=== PATIENT | male | born 1980 | race African-American/Black ===

== ENCOUNTER 2017-01-06 00:38 | Emergency (ER) | payer SELFPAY ==
[~2017-01-06] VITALS: Ht 182.9 cm; Wt 83.9 kg
[2017-01-06 04:20] VITALS: BP 128/65
== END 2017-01-06 06:48 | disposition home or self-care (01) ==
LOC: ER 00:41
DX: R51 Headache (principal); M54.6 Pain in thoracic spine; R07.89 Other chest pain; J45.909 Unspecified asthma, uncomplicated; K21.9 Gastro-esophageal reflux disease without esophagitis; F12.10 Cannabis abuse, uncomplicated; F10.129 Alcohol abuse with intoxication, unspecified; Y04.0XXA Assault by unarmed brawl or fight, initial encounter; Y99.8 Other external cause status; Y93.89 Activity, other specified; Y92.59 Other trade areas as the place of occurrence of the external cause
CPT/HCPCS: 70450; 70486; 71111